=== PATIENT | female | born 1965 ===

== ENCOUNTER 2024-09-20 11:25 | Emergency (ER) | payer OTHER ==
[2024-09-20 12:54] LABS: Bilirubin Negative (Negative); Blood, Urine 3+ (Negative); CAUTI Indications for Culture Dysuria,urgency,freq; Clarity Extra Turbid (Clear); Glucose, Urine (Dipstick) Greater than 1000 mg/dL (Negative); Ketone, Urine 20 mg/dL (Negative); Leukocyte 500 Leu/uL (Negative); Nitrite Negative (Negative); Protein, Urine (Dipstick) 100 mg/dL (Neg-Trace); RBC/HPF Greater than 50 HPF (0-3); Specific Gravity, Urine 1.046 (1.002-1.036); Squamous Epithelial 0-3 HPF (0-3); Urobilinogen Normal mg/dL (Less than 2); WBC/HPF Greater than 50 HPF (0-3)
[2024-09-20 12:56] LABS: Bacteria/HPF Rare-Few HPF (None Seen)
[2024-09-20 13:00] LABS: Urine Culture Reflex Yes Yes
== END 2024-09-20 13:33 | disposition home or self-care (01) ==
LOC: ERS 11:25
DX: N39.0 Urinary tract infection, site not specified (principal); R31.9 Hematuria, unspecified; I10 Essential (primary) hypertension
CPT/HCPCS: 81001; 87077; 87086; 87186; 99283